=== PATIENT | male | born 1995 | race African-American/Black ===

== ENCOUNTER 2017-12-13 21:14 | Inpatient (IN) | payer MEDICAID, OTHER ==
[~2017-12-13] VITALS: Ht 193 cm; Wt 143.0 kg
[~2017-12-13 21:14] MED LIST: BUPR150SR PO; VICOT PO
[2017-12-13] MEDS ORDERED: FLUO-191 PO (21:33)
[2017-12-13] MEDS ORDERED: LITH300C3 PO (21:33)
[2017-12-13 21:53] LABS: BASOPHILS # (AUTO) 0.05 K/uL (0.00-0.20); BASOPHILS % (AUTO) 0.4 % (0.0-2.0); EOSINOPHILS # (AUTO) 0.09 K/uL (0.00-0.70); EOSINOPHILS % (AUTO) 0.66 % (1.0-6.0); HEMATOCRIT 43.3 % (41-53); HEMOGLOBIN 14.1 g/dL (13.5-17.5); LYMPHOCYTES # (AUTO) 3.1 K/uL (1.0-4.8); LYMPHOCYTES % (AUTO) 22.5 % (22.0-44.0); MEAN CORPUSCULAR HEMOGLOBIN 29.2 pg (26.0-34.0); MEAN CORPUSCULAR HGB CONC 32.5 G/dL (31.0-37.0); MEAN CORPUSCULAR VOLUME 90 fL (80-100); MONOCYTES # (AUTO) 0.5 K/uL (0.1-1.0); MONOCYTES % (AUTO) 3.7 % (2.0-9.0); NEUTROPHILS # (AUTO) 9.9 K/uL (1.8-7.7); NEUTROPHILS % (AUTO) 72.8 % (40.0-70.0); PLATELET COUNT (AUTO) 350 K/uL (150-450); RED BLOOD CELL COUNT(AUTO) 4.82 MIL/uL (4.50-5.90); RED CELL DISTRIBUTION WIDTH 12.7 % (11.5-14.5)
[2017-12-13 22:07] LABS: LITHIUM < 0.20 mmol/L (0.60-1.20)
[2017-12-13 22:10] LABS: AMPHET/METH SCREEN,URINE NEGATIVE (NEGATIVE); BARBITURATE SCREEN, URINE NEGATIVE (NEGATIVE); BENZODIAZEPINES SCREEN,URINE NEGATIVE (NEGATIVE); CANNABINOID SCREEN,URINE NEGATIVE (NEGATIVE); COCAINE SCREEN,URINE NEGATIVE (NEGATIVE); METHADONE SCREEN, URINE NEGATIVE (NEGATIVE); OPIATE SCREEN,URINE NEGATIVE (NEGATIVE)
[2017-12-13 22:34] LABS: PLATELET MORPHOLOGY COMMENT GIANT PLTS PRESENT
[2017-12-13 22:39] LABS: ANION GAP 10 mmol/L (8-16); CALCIUM, TOTAL 9.7 mg/dL (8.8-10.5); CARBON DIOXIDE 27 mmol/L (22-29); CHLORIDE 100 mmol/L (98-107); CREATININE 1.21 mg/dL (0.60-1.30); GLOMERULAR FILTR. RATE CALC > 60 mL/min (>60); GLUCOSE,RANDOM 93 mg/dL (70-110); POTASSIUM 3.9 mmol/L (3.5-5.1); SODIUM SERUM 137 mmol/L (136-145); UREA NITROGEN, BLOOD 9 mg/dL (7-18)
[2017-12-13 22:44] LABS: ALANINE AMINOTRANSFERASE 107 U/L (12-78); ALKALINE PHOSPHATASE 71 U/L (46-116); ASPARTATE AMINOTRANSFERASE 37 U/L (15-37); BILIRUBIN,TOTAL 0.4 mg/dL (0.1-1.0); TOTAL PROTEIN, SERUM 8.9 g/dL (6.4-8.2)
[2017-12-13 22:45] LABS: PHENCYCLIDINE SCREEN,URINE NEGATIVE (NEGATIVE)
[2017-12-13] MEDS ORDERED: LORazepam 2 MG TABLET PO PRN (23:45)
[2017-12-13] MEDS ORDERED: LORazepam 2 MG TABLET PO ONE (23:45)
[2017-12-13] MEDS ORDERED: HALOPERIDOL 5 MG TABLET PO PRN (23:45)
[2017-12-13] MEDS ORDERED: ZOLPIDEM TARTRATE 10 MG TABLET PO PRN (23:45)
[2017-12-14 03:37] LABS: CHOL/HDL RATIO 8.3 (4.2-7.3); CHOLESTEROL 388 mg/dL (131-200); HDL CHOLESTEROL 47 mg/dL (40-60); LDL CHOL (CALC.) 313 mg/dL (0-130); TRIGLYCERIDES 138 mg/dL (15-150)
[2017-12-14] MEDS ORDERED: IBUPROFEN 600 MG TABLET PO PRN (10:00)
[2017-12-14] MEDS ORDERED: MAG HYDROX/AL HYDROX/SIMETH ES 30 ML SUSPENSION UDCUP PO PRN (10:00)
[2017-12-14] MEDS ORDERED: ALBUTEROL SULFATE HFA 90 MCG/PUFF 8 GM INHALER IH PRN (10:00)
[2017-12-14] MEDS ORDERED: ACETAMINOPHEN 325 MG TABLET PO PRN (10:00)
[2017-12-14] MEDS ORDERED: CloNIDine HCL 0.1 MG TABLET PO PRN (10:00)
[2017-12-14] MEDS ORDERED: PETROLATUM,WHITE 71 GM JELLY TP PRN (10:00)
[2017-12-14] MEDS ORDERED: ONDANSETRON HCL 4 MG TABLET PO PRN (10:00)
[2017-12-14] MEDS ORDERED: MAGNESIUM HYDROXIDE SUSPENSION 30 ML UDCUP PO PRN (10:00)
[2017-12-14] MEDS ORDERED: LOPERAMIDE HCL 2 MG CAPSULE PO PRN (10:00)
[2017-12-14] MEDS ORDERED: BACITRACIN 28.4 GM OINTMENT TP PRN (10:00)
[2017-12-14] MEDS ORDERED: BENZOCAINE/MENTHOL LOZENGE [8 LOZENGES/PACKET] MM PRN (10:45)
[2017-12-14 12:06] VITALS: BP 99/64
[2017-12-14] MEDS ORDERED: PNEUMOCOCCAL VACCINE POLYVALENT 0.5 ML VIAL [PPSV23] IM ONE (12:45)
[2017-12-14 12:47] VITALS: BP 99/64
[2017-12-14] MEDS ORDERED: HALOPERIDOL 5 MG TABLET PO PRN (13:45)
[2017-12-14] MEDS ORDERED: DiphenhydrAMINE HCL 25 MG CAPSULE PO PRN (13:45)
[2017-12-14] MEDS ORDERED: LORazepam 2 MG TABLET PO PRN (13:45)
[2017-12-14] MEDS: MIRTAZAPINE 15 MG TABLET PO SCH (20:28)
[2017-12-15] MEDS ORDERED: INFLUENZA VIRUS VACCINE QVS 2017-18 (3YR+)/PF 60 MCG/0.5 ML SYRINGE IM ONE (01:30)
[2017-12-15 08:02] VITALS: BP 136/79
[2017-12-15] MEDS: ARIPiprazole 5 MG TABLET PO SCH (08:23)
[2017-12-15] MEDS: SIMVASTATIN 10 MG TABLET PO SCH (08:23)
[2017-12-15 16:09] VITALS: BP 125/63
[2017-12-15] MEDS: MIRTAZAPINE 15 MG TABLET PO SCH (20:28)
[2017-12-16 07:00] VITALS: BP 128/69
[2017-12-16 08:50] VITALS: BP 133/83
[2017-12-16] MEDS: ARIPiprazole 5 MG TABLET PO SCH (09:34)
[2017-12-16] MEDS: SIMVASTATIN 10 MG TABLET PO SCH (09:34)
[2017-12-16 16:04] VITALS: BP 109/83
[2017-12-16] MEDS ORDERED: MIRTAZAPINE 30 MG TABLET PO SCH (21:00)
[2017-12-17] VITALS: BP 138/63
[2017-12-17 08:05] LABS: BASOPHILS # (AUTO) 0.05 K/uL (0.00-0.20); BASOPHILS % (AUTO) 0.5 % (0.0-2.0); EOSINOPHILS # (AUTO) 0.16 K/uL (0.00-0.70); HEMATOCRIT 41.9 % (41-53); HEMOGLOBIN 13.5 g/dL (13.5-17.5); LYMPHOCYTES # (AUTO) 4.7 K/uL (1.0-4.8); LYMPHOCYTES % (AUTO) 44.3 % (22.0-44.0); MEAN CORPUSCULAR HEMOGLOBIN 29.1 pg (26.0-34.0); MEAN CORPUSCULAR HGB CONC 32.3 G/dL (31.0-37.0); MEAN CORPUSCULAR VOLUME 90 fL (80-100); MONOCYTES # (AUTO) 0.5 K/uL (0.1-1.0); MONOCYTES % (AUTO) 4.7 % (2.0-9.0); NEUTROPHILS # (AUTO) 5.2 K/uL (1.8-7.7); PLATELET COUNT (AUTO) 311 K/uL (150-450); RED BLOOD CELL COUNT(AUTO) 4.65 MIL/uL (4.50-5.90); RED CELL DISTRIBUTION WIDTH 12.8 % (11.5-14.5)
[2017-12-17] MEDS: ARIPiprazole 5 MG TABLET PO SCH (08:05)
[2017-12-17] MEDS: SIMVASTATIN 10 MG TABLET PO SCH (08:06)
[2017-12-17 08:09] VITALS: BP 138/76
[2017-12-17 08:18] LABS: HEMOGLOBIN A1C 5.2 % (4.5-6.2)
[2017-12-17 08:45] LABS: CHOL/HDL RATIO 8.2 (4.2-7.3); FREE T4 (FREE THYROXINE) 0.76 ng/dL (0.76-1.46); THYROID STIMULATING HORMONE 1.18 uIU/mL (0.36-3.74)
[2017-12-17] MEDS ORDERED: ARIP5TAB8 PO (13:24)
[2017-12-17] MEDS ORDERED: MIRT30 PO (13:24)
[2017-12-17] MEDS ORDERED: SIMV-259 PO (13:24)
== END 2017-12-17 14:50 | disposition left against medical advice (07) | DRG 751 ==
LOC: EMS 21:15 → AHU 12-14 08:52 → B2S 12-14 11:55
PROVIDERS: ADMIT Psychiatry & Neurology Psychiatry; ATTEND Psychiatry & Neurology Psychiatry
PROC: 3E0234Z Introduction of Serum, Toxoid and Vaccine into Muscle, Percutaneous Approach (ICD-10-PCS; principal; 2017-12-14)
DX: F33.2 Major depressive disorder, recurrent severe without psychotic features (principal); R45.851 Suicidal ideations; E78.5 Hyperlipidemia, unspecified; E66.9 Obesity, unspecified; D72.829 Elevated white blood cell count, unspecified; F41.9 Anxiety disorder, unspecified; G47.00 Insomnia, unspecified; J45.909 Unspecified asthma, uncomplicated; Z53.21 Procedure and treatment not carried out due to patient leaving prior to being seen by health care provider; Z60.9 Problem related to social environment, unspecified; Z68.38 Body mass index [BMI] 38.0-38.9, adult; Z23 Encounter for immunization; Z81.3 Family history of other psychoactive substance abuse and dependence
CPT/HCPCS: 82306; 83036; 84439; 84443; 90471; 99285; G0480